=== PATIENT | male | born 2000 ===

== ENCOUNTER 2023-06-17 08:26 | Outpatient (CLI) | payer OTHER, SELFPAY ==
[2023-06-25 17:55] VITALS: BMI 26.4
--- NOTE | 2023-06-25 17:55 | WPDSLEEPSTUD ---
Sleep Study Date of Study: 06/17/23 Ordering Provider: Justin Lujan APRN Interpreting Physician: Samara Corey DO Sleep Study Type: Polysomnogram Height: 1.83 m Weight: 88.451 kg Body Mass Index: 26.4 Neck Circumference (inches): 19 [place]: 1 Reason for Sleep Study Trouble falling asleep and staying asleep Sleep History The patient is a 22-year-old male with ADHD that had a sleep study ordered for evaluation of sleep apnea. The patient denies awakening from sleep short of breath. He denies awakening at night with heartburn, belching or cough. He denies. He constantly has trouble sleeping when he has a cold. He denies waking up gasping for air throughout the night. He denies having breathing problems at night observed by himself or others. He rarely sweats excessively at night. He denies having heart palpitations or irregular heartbeats during the night. He denies falling asleep during the day and while driving. He denies cataplexy. He occasionally has trouble at school or work due to sleepiness. He rarely feels unable to move while waking up or falling asleep. He frequently experiences vivid dreamlike scenes upon awakening or falling asleep. He denies feeling afraid of going to sleep. He frequently has nightmares. He occasionally remembers his dreams. He occasionally has thoughts racing through his mind. He occasionally feels sad or depressed. He frequently has anxiety. He frequently has muscular tension. He frequently notices parts of his body jerk. He occasionally kicks during the night. He occasionally has crawling and aching feelings in his legs but denies having leg pain during the night. He denies grinding his teeth during sleep and denies awakening with morning jaw pain. He is occasionally bothered by pain during the day but rarely awakened by pain during the night. He frequently wakes up feeling stiff in the morning. He occasionally wakes up with sore or achy muscles. He occasionally wakes up with pain in the neck, spine and other joints. He goes to bed at 10:00 p.m. on weekdays and 11:00 p.m. on the weekends. It takes a minimum of 30 minutes to fall asleep. He wakes up 2-4 times throughout the night for unknown reasons and it takes 10-20 minutes to fall back asleep. He wakes up at 5:45 a.m. on weekdays and at 7:00 a.m. on the weekends. He typically gets 6-7 hours of sleep per night. He will stay in bed for 5 minutes after waking up in the morning. He currently lives with his roommates. He does work a split or rotating shift. He denies consuming any caffeinated beverages within 2 hours of bedtime. He denies engaging in physical exercise before bedtime. He will read before falling asleep. He denies watching television before falling asleep. He denies taking naps in the afternoon or the evening. He denies consuming any caffeinated beverages throughout the day. He denies tobacco, alcohol and recreational drug use. FORMERLY [facility] Past Medical History Medical History ADHD Social History Social History Smoking status: Never smoker Alcohol intake: never Substance use: never Medications Home Medications Medication Instructions Recorded Confirmed Type eszopiclone 3 mg tablet 3 mg PO ONCE #2 tabs 05/31/23 05/31/23 Rx Sleep Procedure A full night polysomnogram using the [employer] multi-channel system recorded the standard physiologic parameters including EEG, EOG, submentalis EMG, anterior tibialis EMG, EKG, body position, nasal and oral airflow using nasal pressure sensor and thermistor.? Respiratory parameters of chest and abdominal movements were recorded with Respiratory Inductance Plethysmography belts. Oxygen saturation was recorded by pulse oximetry. Video monitoring was also performed. Sleep stages, periodic limb movements, and EEG arousals were scored in 30 second epochs according to the criteria of the AASM Scoring Manual. The Apnea-Hypopnea Index was calculated using CMS guidelines for definition of hypopnea with 4% O2 desaturations while scoring respiratory events. Sleep Architecture The total recording time was 472.3 minutes.? The total sleep time was 385.0 minutes. Sleep latency was 53.4 minutes. REM latency was 183.0 minutes. Sleep efficiency was 81.5%. The patient had 18 awakenings for an awakening index of 2.8. Wake after sleep onset time was 33.5 minutes. The patient spent 30.0 minutes, 7.8% of total sleep time in Stage N1. The patient spent 238.0 minutes, 61.8% in Stage N2. The patient spent 73.5 minutes, 19.1% in Stage N3. The patient spent 43.5 minutes, 11.3% in Stage REM sleep. Respiratory Analysis The patient had 5 hypopneas for an overall Apnea Hypopnea Index of 0.8. The REM Apnea Hypopnea Index was 1.4. The NREM Apnea Hypopnea Index was 0.7. The patient had a Central Apnea Hypopnea Index of 0. There was no evidence of Wes-Cortes Respirations. Arousals There were 90 total arousals for an arousal index of 14.0. There were 84 spontaneous arousals for an index of 13.1. There were 2 arousals due to respiratory events for an index of 0.3. There were 5 arousals due to periodic limb movements for an index of 0.8.? There were no arousals due to isolated limb movements. Periodic Limb Movements The patient had 0 isolated limb movements with an index of 0. The patient had 26 periodic limb movements with an index of 4.1. Patient had a total of 26 limb movements with a total limb movement index of 4.1. Oximetry Data The patient had an average oxygen saturation of 94.7% in sleep with a minimum oxygen saturation of 86.0% and a maximum oxygen saturation of 99.0%. The patient had 5 oxygen desaturations that were 4% or greater resulting in an Oxygen Desaturation Index of 0.8.? The patient spent 1.3 minutes, 0.3% of total sleep time with an oxygen saturation below 88%. Snoring Profile Snoring was not present during this study. Cardiac Profile The EKG showed normal sinus rhythm.?The patient had an average pulse rate of 55.5 bpm with a minimum pulse of rate of 38.0 bpm and a maximum pulse rate of 93.0 bpm.? EEG Profile No signs of seizure activity seen. Assessment and Plan Assessment and Plan (1) Sleep disturbances: Code(s): G47.9 - Sleep disorder, unspecified Status: Acute Assessment and Plan: The patient had an overall AHI of 0.8 with desaturation down to 86%. This is not consistent with sleep disordered breathing. The patient's sleep history is somewhat suggestive of Restless Leg Syndrome. I recommend that the patient have a serum ferritin drawn for evaluation of iron deficiency anemia. If the patient has a serum ferritin less than 75 ng/mL, I recommend starting a daily iron supplement and a Vitamin C supplement for better absorption. If the serum ferritin is greater than 75 ng/mL, I recommend starting a dopamine agonist and titrating the dose until symptoms resolve. There are nonpharmacological methods to treat limb movements including daily exercise, stretching calf muscles before bed, avoiding excessive amounts of caffeine and alcohol, vitamin B supplementation, magnesium lotion massaged into legs before bed, and use of a weighted blanket. The patient also mentioned having frequent symptoms of anxiety and depression in his sleep history. I recommend that the patient complete a PHQ-9 and YARA-7 for further evaluation of mood disorders and review the results with his PCP. Uncontrolled mood disorders can contribute to or precipitate insomnia. Data The data obtained during this sleep study is adequate for interpretation. Certification This sleep study has been reviewed by a board certified sleep medicine physician.
== END 2023-06-18 05:47 | disposition home or self-care (01) ==
LOC: ANHCSM 08:26
PROVIDERS: Visit Provider Nurse Practitioner Family
DX: G47.61 Periodic limb movement disorder (principal); G47.00 Insomnia, unspecified; G47.9 Sleep disorder, unspecified
CPT/HCPCS: 95810